=== PATIENT | female | born 1985 | race Caucasian/White ===

== ENCOUNTER 2024-12-17 13:55 | Emergency (ER) | payer OTHER, SELFPAY ==
[2024-12-17] VITALS (9 sets, daily range): BP systolic 95–141; BP diastolic 57–76; PULSE 63–81; RESP 16–18; TEMP 36.7; O2SAT 97–100; BMI 28.0
[2024-12-17 14:37] LABS: Add Manual Diff / Slide Review NO; Hematocrit 39.6 % (36-46); Hemoglobin 13.6 g/dL (12.0-16.0); Lymphocytes Absolute Auto 1900 /uL (1100-4500); Mean Corpuscular HGB Conc 34.4 % (30-36); Mean Corpuscular Hemoglobin 30.2 PG (26-34); Mean Corpuscular Volume 87.7 fL (80-100); Platelet Count 227 X10^3/uL (150-400)
[2024-12-17 14:40] LABS: Alanine Aminotransferase 16 IU/L (<35); Albumin 4.5 g/dL (3.5-5.0); Albumin Globulin Ratio 1.6 (1.0-2.8); Alkaline Phosphatase 47 U/L (38-126); Blood Urea Nitrogen 10 mg/dL (7-17); Calcium 9.0 mg/dL (8.4-10.2); Carbon Dioxide 24 mmol/L (22-32); Chloride 104 mmol/L (98-107); Estimated Glomerular Filt Rate > 60 mL/min (>60); Globulin 2.9 g/dL (1.7-4.1); Glucose 100 mg/dL (70-99); HEMOLYSIS < 15 (0-50); Lipase 99 U/L (23-300); Potassium 3.6 mmol/L (3.4-5.1); Sodium 135 mmol/L (137-145); Total Protein 7.4 g/dL (6.3-8.2)
[2024-12-17 14:44] LABS: Culture Indicated Urine Cult Not Indicated
[2024-12-17 15:21] LABS: HCG Quantitative /Beta subunit 16254 mIU/mL
--- NOTE | 2024-12-17 15:26 | DI.US.S_ITS ---
PROCEDURE: US OB <= 14 WEEKS FETUS INDICATIONS: with abdomen pain OUTSIDE/PRIOR DATING DATA: Last menstrual period (LMP): 11/02/2024. LMP-based estimated date of delivery (NEHEMIAS): 08/09/2025. First dating scan (date and location): Today. Estimated date of delivery (NEHEMIAS) from first dating scan: 08/11/2025. TECHNIQUE: Real-time scanning was performed of the fetus and maternal pelvic organs, with image documentation. Endovaginal scanning was also performed to better visualize the fetus and maternal ovaries. COMPARISON: None. FINDINGS: Yolk sac is seen. [place]-rump length is 0.5 cm, ultrasound age of 6 weeks and 1 day. Cardiac motion is detected at a rate of 95 beats per minute. Right corpus luteum cyst is present. Perigestational bleed measures 3.8 x 2.8 cm. Prominent right adnexal veins. IMPRESSION: Living intrauterine gestation at an ultrasound age of 6 weeks and 1 day, which is consistent with the reported LMP. Cardiac motion is detected, however this is slower than expected (95 beats per minute). Close attention on follow-up is advised. [id number] perigestational bleed at 3.8 x 2.8 cm. Prominent right adnexal veins, nonspecific, sometimes associated with pelvic congestion. Dictated by: Paul Toussaint M.D. on 12/17/2024 at 15:43 Approved by: Paul Toussaint M.D. on 12/17/2024 at 15:45
--- NOTE | 2024-12-17 17:04 | ED.ABDPAIN ---
HPI - Abdominal Pain General Chief Complaint: Abdominal Pain Stated Complaint: Poss 6wks , cramping RT Lower abd pain Time Seen by Provider: 12/17/24 15:31 Source: patient Mode of arrival: Ambulatory History of Present Illness HPI narrative: 39 years old female came today complaining of by low abdominal pain intermittently today as cramping without vaginal discharge, vaginal bleeding, diarrhea, constipation, urine problem. She had vaginal spotting last week last for 1 day and went away. She denies any fever, chills, nausea vomiting. She is positive for . She had history of miscarriage under 1st and currently has 4 years old child. Related Data Allergies Allergy/AdvReac Type Severity Reaction Status Date / Time No Known Drug Allergies Allergy Verified 12/17/24 14:01 Review of Systems Review of Systems Narrative: Positive for right lower abdominal pain. Negative for fever, nausea vomiting, diarrhea, constipation, urine problem, vaginal discharge, vaginal bleeding. Patient History Smoking Status: Former smoker Exam Initial Vital Signs Initial Vital Signs: Vital Signs Temperature 98.1 F 12/17/24 14:00 Pulse Rate 75 12/17/24 14:00 Respiratory Rate 16 12/17/24 14:00 Blood Pressure 141/65 H 12/17/24 14:00 Pulse Oximetry 100 12/17/24 14:00 Oxygen Delivery Method Room Air 12/17/24 14:00 Const General: cooperative and well developed Neck Neck: supple Resp Other: Clear to auscultation bilaterally. No rales, wheezing. No respiratory distress. Cardio Other: Normal S1-S2 without murmur. Normal rate and rhythm. GI Other: No tenderness on palpation, guarding or rebound tenderness or distention. Skin General: no rashes or lesions noted Neuro Other: Alert oriented x4. Course Orders Ordered: ED Orders 12/17/24 14:17 Beta HCG, Quant [HCG Quantitative /Beta subunit] Stat Complete Blood Count AUTO DIFF Stat Comprehensive Metabolic Panel Stat Lipase Stat Urine Culture Stat Urine Microscopic Stat 12/17/24 15:26 US OB <= 14 weeks fetus Stat Vital Signs Vital signs: Vital Signs - 8 hr 12/17/24 14:00 12/17/24 14:34 12/17/24 14:36 Temperature 98.1 F Pulse Rate 75 65 Respiratory Rate 16 Blood Pressure 141/65 H 126/62 Pulse Oximetry 100 100 Oxygen Delivery Method Room Air 12/17/24 14:36 07/06/25 15:00 12/17/24 15:00 Temperature Pulse Rate 70 67 Respiratory Rate Blood Pressure 109/57 L Pulse Oximetry 100 100 Oxygen Delivery Method 12/17/24 15:30 12/17/24 15:31 12/17/24 15:31 Temperature Pulse Rate 66 63 Respiratory Rate Blood Pressure 125/62 Pulse Oximetry 100 99 Oxygen Delivery Method Room Air MDM - Abdominal Pain Lab Data 12/17/24 14:17 12/17/24 14:17 Labs: Lab Results 12/17/24 Range/Units 14:17 WBC 7.3 (4.5-11.0) X10^3/uL RBC 4.51 (4.0-5.2) X10^6/uL Hgb 13.6 (12.0-16.0) g/dL Hct 39.6 (36-46) % MCV 87.7 (80-100) fL MCH 30.2 (26-34) PG MCHC 34.4 (30-36) % RDW 12.8 (11.6-14.8) % Plt Count 227 (150-400) X10^3/uL Neut % (Auto) 67.1 (50-75) % Lymph % (Auto) 25.7 (25-40) % [place] % (Auto) 5.2 (3-14) % Eos % (Auto) 1.2 L (2-4) % Baso % (Auto) 0.8 (0-2) % Neut # (Auto) 4900 (2664-8162) /uL Lymph # (Auto) 1900 (4505-3021) /uL [place] # (Auto) 400 (0-900) /uL Eos # (Auto) 100 (0-450) /uL Baso # (Auto) 100 (0-100) /uL Sodium 135 L (137-145) mmol/L Potassium 3.6 (3.4-5.1) mmol/L Chloride 104 (98-107) mmol/L Carbon Dioxide 24 (22-32) mmol/L BUN 10 (7-17) mg/dL Creatinine 0.59 (0.52-1.04) mg/dL Estimated GFR > 60 (>60) mL/min BUN/Creatinine Ratio 16.9 (6-22) Glucose 100 H (70-99) mg/dL Calcium 9.0 (8.4-10.2) mg/dL Total Bilirubin 0.3 (0.2-1.3) mg/dL AST 21 (14-36) IU/L ALT 16 (<35) IU/L Alkaline Phosphatase 47 (38-126) U/L Total Protein 7.4 (6.3-8.2) g/dL Albumin 4.5 (3.5-5.0) g/dL Globulin 2.9 (1.7-4.1) g/dL Albumin/Globulin Ratio 1.6 (1.0-2.8) Lipase 99 (23-300) U/L HCG, Quant 67013 mIU/mL Urine RBC 0-1/hpf (0-5/HPF) Urine WBC 0-1/hpf (0-5/HPF) Ur Squamous Epith Cells 1-5 /hpf (0-5/HPF) Urine Bacteria Moderate (10-30) H (None) Ur Culture Indicated? Cult not indicated Vol Urine Centrifuged 10ml (spun) Point of care testing: Urine Dip Bedside Urine Glucose Negative Bedside Urine Bilirubin - Negative Bedside Urine Ketone +/- 5 Urine Specific [place] 1.010 Bedside Urine Occult Blood +/- Bedside Urine pH 6 Bedside Urine Protein - Negative Bedside Urine Urobilinogen - Negative Bedside Urine Nitrite - Negative Bedside Urine Leukocytes - Negative Esterase Imaging Data US - OB: Radiologist's Impression: PROCEDURE: US OB <= 14 WEEKS FETUS INDICATIONS: with abdomen pain OUTSIDE/PRIOR DATING DATA: Last menstrual period (LMP): 11/02/2024. LMP-based estimated date of delivery (NEHEMIAS): 08/09/2025. First dating scan (date and location): Today. Estimated date of delivery (NEHEMIAS) from first dating scan: 08/11/2025. TECHNIQUE: Real-time scanning was performed of the fetus and maternal pelvic organs, with image documentation. Endovaginal scanning was also performed to better visualize the fetus and maternal ovaries. COMPARISON: None. FINDINGS: Yolk sac is seen. [place]-rump length is 0.5 cm, ultrasound age of 6 weeks and 1 day. Cardiac motion is detected at a rate of 95 beats per minute. Right corpus luteum cyst is present. Perigestational bleed measures 3.8 x 2.8 cm. Prominent right adnexal veins. IMPRESSION: Living intrauterine gestation at an ultrasound age of 6 weeks and 1 day, which is consistent with the reported LMP. Cardiac motion is detected, however this is slower than expected (95 beats per minute). Close attention on follow-up is advised. [id number] perigestational bleed at 3.8 x 2.8 cm. Prominent right adnexal veins, nonspecific, sometimes associated with pelvic congestion. Dictated by: Paul Toussaint M.D. on 12/17/2024 at 15:43 Approved by: Paul Toussaint M.D. on 12/17/2024 at 15:45 [facility] Narrative Medical decision making narrative: 39 years old female came today complaining of right lower abdominal pain without nausea vomiting, fever. She has vaginal spotting last week. Her last LMP was 11/02/2024. The OB ultrasound showed perigestational bleeding with intrauterine , heart rate was 95 beats per minute. Her CBC showed no leukocytosis and normal hemoglobin. Her CMP shows sodium 135 otherwise normal. Lipase was normal. Her beta HCG was 16,254. Her UA showed no UTI. I discussed the case with our fish trapper and we have the patient follow-up outpatient on Wednesday. Discharge Plan Departure Patient Disposition: Home Clinical Impression: Miscarriage, threatened, early Instructions: Threatened Miscarriage Activity Restrictions/Additional Instructions: Please call the OBGYN on Wednesday to get an appointment for follow-up. You should expect a phone call from the OBGYN office as well. Referrals: Lara Urban DO [Physician, SCREEN HANDLER] Stand Alone Forms: Patient Portal/API
--- NOTE | 2024-12-17 17:22 | PC.NURSE ---
Patient reports being RH negative and having to get RhoGam shot in previous pregnancies. Provider Javad made aware. New orders as per AUG.
[2024-12-17] MEDS: RHO(D) IMMUNE GLOBULIN 1,500 UNIT SYRINGE 1500 UNIT IM (18:08)
--- NOTE | 2024-12-17 18:39 | PC.NURSE ---
1735: Called and spoke with [facility] pharmacist Milka regarding patient. Notified pharmacist patient has threatened miscarriage at 6 weeks. Confirmed dosage of RhO (D) Immune Globulin (Human) to be 1500 units or 300 micrograms as per order by provider Anna. Pharmacist Milka confirmed.
== END 2024-12-17 18:51 | disposition home or self-care (01) ==
PROVIDERS: Emergency Provider Emergency Medicine
DX: O20.0 Threatened abortion (principal); Z3A.01 Less than 8 weeks gestation of pregnancy
CPT/HCPCS: 36415; 76801; 76817; 80053; 81003; 81015; 83690; 84702; 85025; 86900; 86901; 87086; 96372; 99284; J2790

== ENCOUNTER → 2025-01-17 08:37 | Outpatient (CLI) | payer OTHER, SELFPAY ==
[2025-01-17 09:27] LABS: Add Manual Diff / Slide Review NO; Hematocrit 37.9 % (36-46); Hemoglobin 13.2 g/dL (12.0-16.0); Lymphocytes Absolute Auto 1300 /uL (1100-4500); Mean Corpuscular HGB Conc 34.8 % (30-36); Mean Corpuscular Hemoglobin 30.5 PG (26-34); Mean Corpuscular Volume 87.4 fL (80-100); Platelet Count 201 X10^3/uL (150-400)
[2025-01-17 09:49] LABS: Natera Collection Specimen Collected
[2025-01-17 10:18] LABS: Hepatitis B Surface Antigen NEGATIVE s/c (NEGATIVE)
[2025-01-17 10:35] LABS: HIV 1 & 2 Ab/Ag 4th Gen Combo NEGATIVE (NEGATIVE); Hep C Virus Ab w/Reflex Quant NEGATIVE s/c (NEGATIVE)
== END ==
PROVIDERS: Referring Provider Obstetrics & Gynecology; Visit Provider Obstetrics & Gynecology
DX: O09.511 Supervision of elderly primigravida, first trimester (principal); Z3A.10 10 weeks gestation of pregnancy
CPT/HCPCS: 36415; 80055; 86787; 86803; 86850; 86870; 86900; 86901; 87086; 87389; 87491; 87591

== ENCOUNTER → 2025-03-14 09:22 | Outpatient (CLI) | payer OTHER, SELFPAY ==
[2025-03-16 20:39] LABS: Gest Age on Col Date 18.4 weeks (.); OSBR Risk 1IN 10000 (.)
== END ==
PROVIDERS: Referring Provider Obstetrics & Gynecology; Visit Provider Obstetrics & Gynecology
DX: Z34.80 Encounter for supervision of other normal pregnancy, unspecified trimester (principal); Z3A.18 18 weeks gestation of pregnancy
CPT/HCPCS: 36415; 82105

== ENCOUNTER → 2025-03-26 13:43 | Outpatient (CLI) | payer OTHER, SELFPAY ==
--- NOTE | 2025-03-26 13:44 | DI.US.S_ITS ---
PROCEDURE: US OB >= 14 WEEKS FETUS INDICATIONS: 20 week anatomy scan OUTSIDE/PRIOR DATING DATA: Working NEHEMIAS: 08/12/2025 TECHNIQUE: Real-time scanning was performed of the fetus, with image documentation and biometric measurements. Endovaginal scanning: Not obtained COMPARISON: [facility], , OB <= 14 WEEKS FETUS, 12/17/2024, 15:58. FINDINGS: General: A single living intrauterine gestation is present. Presentation: Vertex. Placenta: Placental position is posterior , without previa. Amniotic fluid index: 17.1 cm, normal range is 5-24 cm. Single deepest vertical pocket is 5.3 cm. heart rate: 139 beats per minute. Maternal cervical canal: 4.5 cm long. Normal lower limit is 2.5 cm. biometrics: Biparietal diameter: 5.2 cm 21 weeks 5 days Head circumference: 18.3 cm 20 weeks 5 days Abdominal circumference: 16.2 cm 21 weeks 2 days Femur length: 3.6 cm 21 weeks 2 days Clinically estimated gestational age: 20 weeks 1 day Composite gestational age from present scan: 21 weeks 2 days Estimated weight and percentile: 409 g 94th percentile Anatomic survey: Neuro: Ventricles are non-dilated at less than 10 mm. Cisterna magna is normal at 3-11 mm. Cerebellum is normal in size and morphology. Nuchal skin fold: Normal at less than 6 mm between 14-21 weeks gestational age. Face: Nose and lips, facial profile are not well seen. Spine: No evidence for spina bifida. Heart: 4-chambered heart and ventricular outflow tracts are not well seen. Diaphragm: Diaphragm is intact. Stomach: Left-sided stomach is present. Echogenic focus is present near stomach and near the gallbladder. Kidneys: No hydronephrosis. Normal is less than 5 mm in 2nd trimester, less than 7 mm in 3rd trimester. Cord: 3-vessel cord has orthotopic insertion. Bladder: Normal in size. Extremities: All 4 extremities identified. IMPRESSION: Single live intrauterine with gestational age today of 21 weeks 2 days. Profile, four-chamber heart, outflow tracts are suboptimally evaluated. Follow- up is recommended. Echogenic foci anterior to the stomach and near the gallbladder present. These are overall nonspecific and not well characterized. Attention to these regions on follow-up imaging is recommended. We strive to produce accurate, complete, and clear reports of imaging services. To assist us in improving patient care, this report was composed using standard report templates and voice recognition software. Therefore, it may contain abnormal punctuation, insertions and/or omissions. Occasional wrong-word or sound-alike substitutions may occur. Though we review the report and make efforts to correct it, we do recommend that the report be read carefully in proper context to recognize any text inaccuracies. Dictated by: Kait Funk M.D. on 03/26/2025 at 17:10 Approved by: Kait Funk M.D. on 03/26/2025 at 17:13
== END ==
LOC: US 13:44
PROVIDERS: Referring Provider Emergency Medicine; Visit Provider Emergency Medicine
DX: Z34.80 Encounter for supervision of other normal pregnancy, unspecified trimester (principal); Z3A.20 20 weeks gestation of pregnancy
CPT/HCPCS: 76811

== ENCOUNTER → 2025-05-18 08:46 | Outpatient (CLI) | payer OTHER, SELFPAY ==
[2025-05-18 12:14] LABS: Add Manual Diff / Slide Review NO; Hematocrit 34.7 % (36-46); Hemoglobin 12.0 g/dL (12.0-16.0); Lymphocytes Absolute Auto 1300 /uL (1100-4500); Mean Corpuscular HGB Conc 34.7 % (30-36); Mean Corpuscular Hemoglobin 30.4 PG (26-34); Mean Corpuscular Volume 87.6 fL (80-100); Platelet Count 199 X10^3/uL (150-400)
[2025-05-18 12:40] LABS: GTT (PREG) 1 Hour PP 50gm Dose 83 mg/dL (76-139)
== END ==
PROVIDERS: Referring Provider Obstetrics & Gynecology; Visit Provider Obstetrics & Gynecology
DX: Z34.80 Encounter for supervision of other normal pregnancy, unspecified trimester (principal); Z3A.24 24 weeks gestation of pregnancy
CPT/HCPCS: 82950; 85025

== ENCOUNTER → 2025-05-22 07:54 | Outpatient (CLI) | payer OTHER, SELFPAY ==
--- NOTE | 2025-05-22 07:55 | DI.US.S_ITS ---
PROCEDURE: US OB FOLLOW UP INDICATIONS: follow up cardiac views, gallbladder views- incomplete OUTSIDE/PRIOR DATING DATA: Last menstrual period (LMP): 11/02/2024 LMP-based estimated date of delivery (NEHEMIAS): 08/09/2025. First dating scan (date and location): 12/17/2024. Estimated date of delivery (NEHEMIAS) from first dating scan: 08/11/2025 Working NEHEMIAS is 08/12/2025. TECHNIQUE: Real-time scanning was performed of the fetus, with image documentation and biometric measurements. Endovaginal scanning: No COMPARISON: [facility], , OB >= 14 WEEKS FETUS, 03/26/2025, 14:04. FINDINGS: General: A single living intrauterine gestation is present. Presentation: [place] Placenta: Placental position is posterior , without previa. Amniotic fluid index: 16.7 cm, normal range is 5-24 cm. Single deepest vertical pocket is 6.0 cm. heart rate: 139 beats per minute. Maternal cervical canal: 4.5 cm long. Normal lower limit is 2.5 cm. biometrics: Biparietal diameter: 29 weeks 6 days Head circumference: 29 weeks 3 days Abdominal circumference: 29 weeks 3 days Femur length: 29 weeks 4 days Clinically estimated gestational age: 28 weeks 2 days Composite gestational age from present scan: 28 weeks 4 days Estimated weight and percentile: 1402 g; 80 second percentile. Punctate echogenic foci again seen adjacent to the stomach and gallbladder fossa similar to prior examination. Normal appearance of the four-chamber heart and cardiac outflow tracts. IMPRESSION: 1. Single living IUP redemonstrated and interval growth is within normal limits. 2. Normal appearance of the four-chamber heart and cardiac outflow tracts. 3. Punctate echogenic foci adjacent to the stomach and gallbladder fossa similar to prior examination. Findings are indeterminate and attention on follow-up recommended. We strive to produce accurate, complete, and clear reports of imaging services. To assist us in improving patient care, this report was composed using standard report templates and voice recognition software. Therefore, it may contain abnormal punctuation, insertions and/or omissions. Occasional wrong-word or sound-alike substitutions may occur. Though we review the report and make efforts to correct it, we do recommend that the report be read carefully in proper context to recognize any text inaccuracies. Dictated by: Jayro ROBERTSON Interpreted: Tashi Schwartz MD on 05/22/2025 at 9:34 Approved by: Tashi Schwartz M.D. on 05/22/2025 at 13:17
== END ==
LOC: US 07:54
PROVIDERS: Referring Provider Obstetrics & Gynecology; Visit Provider Obstetrics & Gynecology
DX: O28.3 Abnormal ultrasonic finding on antenatal screening of mother (principal); Z3A.28 28 weeks gestation of pregnancy
CPT/HCPCS: 76816